=== PATIENT | male | born 1995 | race Caucasian/White ===

== ENCOUNTER 2016-10-04 01:01 | Emergency (ER) | payer OTHER ==
[2016-10-04 01:43] LABS: Hematocrit 43 % (42-52); Hemoglobin 14.4 g/dl (14.0-18.0); Mean Corpuscular HGB Conc 34 g/dl (31-36); Mean Corpuscular Hemoglobin 31 pg (27-31); Mean Corpuscular Volume 92 fL (80-94); Mean Platelet Volume 9 um3 (7.4-10.4); Red Blood Count 4.69 10^6/ul (4.0-5.4); Red Cell Distribution Width 13 % (10.5-15); White Blood Count 6.7 10^3/ul (3.5-10.8)
[2016-10-04 01:56] LABS: Albumin 4.7 g/dL (3.2-5.2); BUN/Creatinine Ratio 14.4 (8-20); Calcium 9.2 mg/dL (8.6-10.3); EGFR African American 126.9 (>60); EGFR Non-African American 98.7 (>60); Globulin 2.7 g/dL (2-4); Potassium 3.3 mmol/L (3.5-5.0); Total Bilirubin 0.4 mg/dL (0.2-1.0); Total Protein 7.4 g/dL (6.4-8.9)
--- NOTE | 2016-10-04 06:31 | ED ---
Debra Romero SooYoung, scribed for FadiaCharly on 10/04/16 at 0458 . Substance Abuse/Use - HPI Summary HPI Summary: LEVEL 5 CAVEAT - ETOH INTOXICATION, UNRESPONSIVE A 21 y/o M JOSE presents to ED for ETOH intoxication. Associated sx: vomiting, incontinent. - History Of Current Complaint Chief Complaint: EDSubstanceAbuse Stated Complaint: ETOH Hx Obtained From: EMS Ingestion History: Type/Name Of Drug - ETOH PMH/Surg Hx/FS Hx/Imm Hx Previously Healthy: No - LEVEL 5 CAVEAT - ETOH INTOXICATION, UNRESPONSIVE Infectious Disease History: No Infectious Disease History: Denies: Traveled Outside the [place] in Last 30 Days - Family History Family History: LEVEL 5 CAVEAT - ETOH INTOXICATION, UNRESPONSIVE - Social History Occupation: Student Alcohol Use: None Substance Use Type: Reports: None Smoking Status (MU): Never Smoked Tobacco Review of Systems - ROS Summary Review of Systems Summary: LEVEL 5 CAVEAT - ETOH INTOXICATION, UNRESPONSIVE Negative: Fever Positive: Vomiting Positive: incontinence All Other Systems Reviewed And Are Negative: No Physical Exam Triage Information Reviewed: Yes Vital Signs On Initial Exam: Initial Vitals Temp Pulse Resp BP Pulse Ox 98.2 F 101 16 119/68 96 10/04/16 01:06 10/04/16 01:06 10/04/16 01:06 10/04/16 01:06 10/04/16 01:06 Vital Signs Reviewed: Yes Appearance: Positive: Well-Appearing, No Pain Distress Skin: Positive: Warm, Skin Color Reflects Adequate Perfusion, Dry Head/Face: Positive: Normal Head/Face Inspection Eyes: Positive: EOMI, LAZARO ENT: Positive: Normal ENT inspection Neck: Positive: Supple, Nontender Respiratory/Lung Sounds: Positive: Clear to Auscultation, Breath Sounds Present Cardiovascular: Positive: RRR, Pulses are Symmetrical in both Upper and Lower Extremities Abdomen Description: Positive: Nontender, Soft Bowel Sounds: Positive: Present Musculoskeletal: Positive: Normal, Strength/ROM Intact Neurological: Positive: Normal, Sensory/Motor Intact, Alert, Oriented to Person Place, Time - Ollie Coma Scale Coma Scale Total: 14 Diagnostics - Vital Signs Vital Signs Temp Pulse Resp BP Pulse Ox 10/04/16 04:00 78 101/56 98 10/04/16 03:30 74 98/48 96 10/04/16 03:00 78 92/49 96 10/04/16 02:30 80 93/44 95 10/04/16 02:00 79 97/46 95 10/04/16 01:30 114 108/48 100 10/04/16 01:20 102 99 10/04/16 01:06 98.2 F 101 16 119/68 96 - Laboratory Lab Results: Lab Results 10/04/16 10/04/16 Range/Units 01:30 01:30 WBC 6.7 (3.5-10.8) 10^3/ul RBC 4.69 (4.0-5.4) 10^6/ul Hgb 14.4 (14.0-18.0) g/dl Hct 43 (42-52) % MCV 92 (80-94) fL MCH 31 (27-31) pg MCHC 34 (31-36) g/dl RDW 13 (10.5-15) % Plt Count 192 (150-450) 10^3/ul MPV 9 (7.4-10.4) um3 Neut % (Auto) 64.0 (38-83) % Lymph % (Auto) 26.6 (25-47) % Garland % (Auto) 7.9 (1-9) % Eos % (Auto) 0.8 (0-6) % Baso % (Auto) 0.7 (0-2) % Absolute Neuts (auto) 4.3 (1.5-7.7) 10^3/ul Absolute Lymphs (auto) 1.8 (1.0-4.8) 10^3/ul Absolute Monos (auto) 0.5 (0-0.8) 10^3/ul Absolute Eos (auto) 0.1 (0-0.6) 10^3/ul Absolute Basos (auto) 0 (0-0.2) 10^3/ul Absolute Nucleated RBC 0 10^3/ul Nucleated RBC % 0.1 Sodium 140 (133-145) mmol/L Potassium 3.3 L (3.5-5.0) mmol/L Chloride 106 (101-111) mmol/L Carbon Dioxide 24 (22-32) mmol/L Anion Gap 10 (2-11) mmol/L BUN 14 (6-24) mg/dL Creatinine 0.97 (0.67-1.17) mg/dL Est GFR ( Amer) 126.9 (>60) Est GFR (Non-Af Amer) 98.7 (>60) BUN/Creatinine Ratio 14.4 (8-20) Glucose 150 H (70-100) mg/dL Calcium 9.2 (8.6-10.3) mg/dL Total Bilirubin 0.40 (0.2-1.0) mg/dL AST 22 (13-39) U/L ALT 46 (7-52) U/L Alkaline Phosphatase 53 (34-104) U/L Total Protein 7.4 (6.4-8.9) g/dL Albumin 4.7 (3.2-5.2) g/dL Globulin 2.7 (2-4) g/dL Albumin/Globulin Ratio 1.7 (1-3) Serum Alcohol 205 H (<10) mg/dL Result Diagrams: 10/04/16 01:30 10/04/16 01:30 Lab Statement: Any lab studies that have been ordered have been reviewed, and results considered in the medical decision making process. Course/Dx - Diagnoses Provider Diagnoses: Alcohol intoxication Discharge - Discharge Plan Condition: Stable Disposition: HOME Patient Education Materials: Abuse of Alcohol (ED) Referrals: [facility] [Primary Care Provider] - The documentation as recorded by the Debra hercules SooYoung accurately reflects the service I personally performed and the decisions made by Fadia colindres Emmanuel.
[2016-10-04 07:27] VITALS: BP 131/66
== END 2016-10-04 07:27 | disposition home or self-care (01) ==
LOC: ED 01:01
DX: F10.129 Alcohol abuse with intoxication, unspecified (principal); Y90.7 Blood alcohol level of 200-239 mg/100 ml; R11.10 Vomiting, unspecified
CPT/HCPCS: 36415; 80053; 80320; 85025; 99282; G0480